=== PATIENT | female | born 1965 | race African-American/Black ===

== ENCOUNTER 2017-08-12 05:20 | Emergency (ER) | payer SELFPAY ==
[2017-08-12] MEDS ORDERED: hydrALAZINE 20 MG/ML VIAL ONE ×2 (06:23→06:34)
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
[2017-08-12] MEDS ORDERED: Sterile Water Irrigation 250 ML BOT ONE (08:33)
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
== END 2017-08-12 09:45 | disposition home or self-care (01) ==
LOC: MADERS 05:20
DX: S40.012A Contusion of left shoulder, initial encounter (principal); S50.02XA Contusion of left elbow, initial encounter; V69.9XXA Occupant (driver) (passenger) of heavy transport vehicle injured in unspecified traffic accident, initial encounter
CPT/HCPCS: 70450; 96372; G0390; J0360